=== PATIENT | female | born 1975 | race Two or more races ===

== ENCOUNTER 2020-08-20 09:30 | Outpatient (CLI) | payer OTHER | END 2020-08-20 09:40 | disposition home or self-care (01) | LOC: SONOGRAMA 09:30 | PROVIDERS: ATTEND Pathology Anatomic Pathology & Clinical Pathology | DX: E04.2 Nontoxic multinodular goiter (principal) ==

== ENCOUNTER 2022-09-01 08:19 | Outpatient (CLI) | payer OTHER | END 2022-09-01 08:22 | disposition home or self-care (01) | LOC: SONOGRAMA 08:19 | PROVIDERS: ATTEND Pathology Anatomic Pathology & Clinical Pathology | DX: E04.2 Nontoxic multinodular goiter (principal); D34 Benign neoplasm of thyroid gland; E04.1 Nontoxic single thyroid nodule ==